=== PATIENT | female | born 1955 | race Caucasian/White ===

== ENCOUNTER → 2021-01-17 | Outpatient (CLI) | payer MEDICARE ==
[~2021-01-17] MED LIST: ALBUTEROL SULFATE INH; CORDARONE 200M200 MG PO; ELIQUIS5 MG PO; GABAPENTIN300 MG PO; HYDROCHLOROTHIA25 MG PO; IPRAT-ALBUT 0.5-3 ML INH; IPRATROPIUM BROMIDE INH; K-DUR TAB 20 M20 MEQ PO; LEVAQUIN500 MG PO; LOPRESSOR 25 MG25 MG PO; NITROSTAT0.4 MG SL; PRAVASTATIN SOD80 MG PO; PREDNISONE20 MG PO; RANEXA500 MG PO; SOTALOL120 MG PO; SYMBICORT 160-1 INHA INH; SYMBICORT INH; TESSALON PERLE100 MG PO; TYLENOL W/CODEIN1 E1 PO
== END ==
LOC: KOH-I 10:23
DX: M25.511 Pain in right shoulder (principal)
CPT/HCPCS: 73030